=== PATIENT | female | born 1965 | race Caucasian/White ===

== ENCOUNTER 2019-03-10 15:40 | Outpatient (CLI) | payer OTHER | END 2019-03-10 15:43 | disposition home or self-care (01) | LOC: LAB 15:40 | DX: Z11.3 Encounter for screening for infections with a predominantly sexual mode of transmission (principal) ==

== ENCOUNTER 2019-07-13 12:10 | Outpatient (CLI) | payer OTHER | END 2019-07-13 12:16 | disposition home or self-care (01) | LOC: LAB 12:10 | DX: E78.49 Other hyperlipidemia (principal); Z00.00 Encounter for general adult medical examination without abnormal findings; R42 Dizziness and giddiness; E55.9 Vitamin D deficiency, unspecified ==

== ENCOUNTER 2019-07-17 09:41 | Outpatient (CLI) | payer OTHER | END 2019-07-17 09:43 | disposition home or self-care (01) | LOC: MAMO-SONO 09:41 | DX: N64.4 Mastodynia (principal) ==

== ENCOUNTER → 2020-11-07 | Outpatient (CLI) | payer OTHER | END | disposition home or self-care (01) | LOC: PPH VACUNA 14:10 | DX: Z23 Encounter for immunization (principal) ==

== ENCOUNTER 2020-11-26 13:31 | Outpatient (CLI) | payer OTHER | END 2020-11-26 13:32 | disposition home or self-care (01) | LOC: PPH VACUNA 13:31 | DX: Z23 Encounter for immunization (principal) ==

== ENCOUNTER → 2021-08-25 | Outpatient (CLI) | payer OTHER | END | disposition home or self-care (01) | LOC: PPH VACUNA 08:00 | PROVIDERS: ATTEND Emergency Medicine Pediatric Emergency Medicine | DX: Z23 Encounter for immunization (principal) ==

== ENCOUNTER 2021-10-10 08:00 | Outpatient (CLI) | payer OTHER | END 2021-10-10 08:30 | disposition home or self-care (01) | LOC: PPH VACUNA 08:00 | PROVIDERS: ATTEND Emergency Medicine Pediatric Emergency Medicine | DX: Z23 Encounter for immunization (principal) ==

== ENCOUNTER 2022-09-22 16:00 | Outpatient (CLI) | payer OTHER | END 2022-09-22 16:05 | disposition home or self-care (01) | LOC: PPH VACUNA 16:00 | PROVIDERS: ATTEND Emergency Medicine Pediatric Emergency Medicine | DX: Z23 Encounter for immunization (principal) ==

== ENCOUNTER 2023-07-18 10:49 | Emergency (ER) | payer OTHER ==
[~2023-07-18] VITALS: Ht 142.2 cm; Wt 68.9 kg
== END 2023-07-18 14:49 | disposition home or self-care (01) ==
LOC: ER 10:49
DX: U07.1 COVID-19 (principal)

== ENCOUNTER 2023-11-16 02:00 | Outpatient (CLI) | payer OTHER | END 2023-11-16 02:10 | disposition home or self-care (01) | LOC: PPH VACUNA 02:00 | PROVIDERS: ATTEND Emergency Medicine Pediatric Emergency Medicine | DX: Z23 Encounter for immunization (principal) | CPT/HCPCS: 90686; G0008 ==

== ENCOUNTER 2024-07-26 14:44 | Outpatient (CLI) | payer OTHER | END 2024-07-26 14:51 | disposition home or self-care (01) | LOC: LAB 14:44 | PROVIDERS: ATTEND Preventive Medicine Occupational Medicine | DX: B19.10 Unspecified viral hepatitis B without hepatic coma (principal) ==

== ENCOUNTER 2024-12-12 15:00 | Outpatient (CLI) | payer OTHER | END 2024-12-12 15:10 | disposition home or self-care (01) | LOC: PPH VACUNA 15:00 | PROVIDERS: ATTEND Emergency Medicine Pediatric Emergency Medicine | DX: Z23 Encounter for immunization (principal) ==

== ENCOUNTER 2025-03-01 09:03 | Outpatient (CLI) | payer OTHER ==
[2025-03-01 09:36] LABS: HEMATOCRIT 41.5 % (36.0-45.00); HEMOGLOBIN 14.2 g/dL (12.0-15.00); MEAN CELL VOLUME 83.9 fL (80.00-100.00); MEAN CORPUSCULAR HEMOGLOBIN 28.8 pg (27.00-32.0); MEAN CORPUSCULAR HGB CONC 34.3 g/dl (32.0-36.0); PLATELET COUNT 271 K/uL (150-450); RED BLOOD COUNT 4.95 M/uL (4.00-6.00); RED CELL DISTRIBUTION WIDTH 13.8 % (11.5-14.5)
[2025-03-01 09:43] LABS: PH,URINE 5.5 (5.0-8.0); URINE APPEARANCE Clear; URINE BILIRRUBIN Negative (NEGATIVE); URINE BLOOD Trace; URINE COLOR Dark Yellow; URINE GLUCOSE Negative (NEGATIVE); URINE KETONE Negative (NEGATIVE); URINE LEUKOCYTE Negative; URINE NITRATE Negative; URINE PROTEIN Negative (NEGATIVE); URINE UROBILINOGEN 0.2 E.U./dl
[2025-03-01 09:47] LABS: URINE BACTERIA 64.8 uL (0.0-1933); URINE EPITHELIAL CELLS 36.8 uL (0.0-38.8); URINE RBC 13.8 uL (0.0-20.8); URINE WBC 7.1 uL (0.0-23.2)
[2025-03-01 09:50] LABS: URINE CAST 0.58 uL (0.0-1.40)
[2025-03-01 10:26] LABS: ob NEGATIVE (NEGATIVE)
[2025-03-01 10:42] LABS: ALBUMIN 3.9 gm/dL (3.4-5.0); BILIRUBIN TOTAL 0.79 mg/dL (0.3-1.2); CALCIUM 9.4 mg/dL (8.5-10.1); CREATININE SERUM 0.85 mg/dL (0.55-1.02); GFR 68.45; GLOBULINA 4.5 G/DL (2.4-3.5); POTASSIUM 3.91 mEq/L (3.5-5.1); TOTAL PROTEIN 8.4 gm/dL (6.4-8.2); TSH 3.77 uIU/mL (0.358-3.74)
[2025-03-01 10:43] LABS: CHOL HDL RATIO 5.8 (0-5.0)
== END 2025-03-01 09:14 | disposition home or self-care (01) ==
LOC: LAB 09:03
PROVIDERS: ATTEND Emergency Medicine Pediatric Emergency Medicine
DX: D64.9 Anemia, unspecified (principal); E11.9 Type 2 diabetes mellitus without complications; E78.2 Mixed hyperlipidemia; N39.0 Urinary tract infection, site not specified; E11.65 Type 2 diabetes mellitus with hyperglycemia; E03.8 Other specified hypothyroidism; N18.31 Chronic kidney disease, stage 3a; Z12.11 Encounter for screening for malignant neoplasm of colon; E55.9 Vitamin D deficiency, unspecified

== ENCOUNTER → 2025-03-02 13:01 | Outpatient (CLI) | payer OTHER | END | disposition home or self-care (01) | LOC: LAB 13:01 | PROVIDERS: ATTEND Internal Medicine | DX: E03.9 Hypothyroidism, unspecified (principal) ==

== ENCOUNTER 2025-03-07 08:32 | Outpatient (CLI) | payer OTHER | END 2025-03-07 08:35 | disposition home or self-care (01) | LOC: SONOGRAMA 08:32 | PROVIDERS: ATTEND Internal Medicine | DX: K80.80 Other cholelithiasis without obstruction (principal) ==

== ENCOUNTER 2025-05-21 12:31 | Outpatient (CLI) | payer OTHER | END 2025-05-21 12:35 | disposition home or self-care (01) | LOC: MAMO-SONO 12:31 | PROVIDERS: ATTEND Internal Medicine | DX: N64.4 Mastodynia (principal); R92.8 Other abnormal and inconclusive findings on diagnostic imaging of breast ==

== ENCOUNTER 2025-06-27 07:10 | Outpatient (CLI) | payer OTHER ==
[2025-06-27 07:38] LABS: BASO % 0.7 % (0.1-1.2); EOS # 0.19 (0.04-0.54); EOS % 2.0 % (0.7-7.0); LYMPH # 3.62 (1.18-3.74); LYMPH % 38.6 % (19.3-53.1); MEAN PLATELET VOLUME 10.50 fl (9.4-12.4); MONO # 0.90 (0.24-0.82); MONO % 9.6 % (4.7-12.5); NEUT # 4.59 (1.56-6.13); NEUT % 49.0 % (34.0-71.1); RED CELL DISTRIBUTION WIDTH 12.9 % (11.6-14.4)
[2025-06-27 07:58] LABS: URINE APPEARANCE Clear; URINE BILIRRUBIN Negative (NEGATIVE); URINE BLOOD Negative; URINE COLOR Yellow; URINE GLUCOSE Negative (NEGATIVE); URINE KETONE Trace (NEGATIVE); URINE LEUKOCYTE Trace; URINE NITRATE Negative; URINE PROTEIN Negative (NEGATIVE); URINE UROBILINOGEN 1.0 E.U./dl
[2025-06-27 08:03] LABS: URINE BACTERIA 69.5 uL (0.0-1933); URINE EPITHELIAL CELLS 45.6 uL (0.0-38.8); URINE RBC 5.5 uL (0.0-20.8); URINE WBC 12.7 uL (0.0-23.2)
[2025-06-27 08:04] LABS: URINE CAST 0.29 uL (0.0-1.40)
[2025-06-27 08:25] LABS: ALT/SGPT 28.0 U/L (12-78); AST/SGOT 20.0 U/L (15-37); BILIRUBIN TOTAL 0.37 mg/dL (0.3-1.2); BUN CREA RATIO 26.0 (7.0-25.0); CREATININE SERUM 0.68 mg/dL (0.55-1.02); GFR 88.56; GLOBULINA 3.7 G/DL (2.4-3.5); GLUCOSE FASTING 101.0 mg/dL (65-100); HDL 49.0 mg/dl (40-60); OSMOLALITY SERUM 281.0 MOSM/KG (275-295); VLDL 121.0 (0-39)
[2025-06-27 08:36] LABS: CHOL HDL RATIO 7.5 (0-5.0); LDL 197.0 mg/dl (0-130)
== END 2025-06-27 07:16 | disposition home or self-care (01) ==
LOC: LAB 07:10
PROVIDERS: ATTEND Internal Medicine
DX: D64.9 Anemia, unspecified (principal); E11.9 Type 2 diabetes mellitus without complications; E78.2 Mixed hyperlipidemia; N39.0 Urinary tract infection, site not specified

== ENCOUNTER 2025-09-12 10:20 | Outpatient (CLI) | payer OTHER ==
[2025-09-12 11:10] LABS: URINE APPEARANCE Clear; URINE BILIRRUBIN Negative (NEGATIVE); URINE BLOOD Negative; URINE COLOR Yellow; URINE GLUCOSE Negative (NEGATIVE); URINE KETONE Negative (NEGATIVE); URINE LEUKOCYTE Trace; URINE NITRATE Negative; URINE PROTEIN Negative (NEGATIVE); URINE UROBILINOGEN 0.2 E.U./dl
[2025-09-12 11:12] LABS: URINE BACTERIA 9.5 uL (0.0-1933); URINE EPITHELIAL CELLS 17.2 uL (0.0-38.8); URINE RBC 7.3 uL (0.0-20.8); URINE WBC 7.6 uL (0.0-23.2)
[2025-09-12 11:15] LABS: BASO % 0.6 % (0.1-1.2); EOS # 0.11 (0.04-0.54); EOS % 1.3 % (0.7-7.0); LYMPH # 1.68 (1.18-3.74); LYMPH % 19.9 % (19.3-53.1); MEAN PLATELET VOLUME 10.10 fl (9.4-12.4); MONO # 0.64 (0.24-0.82); MONO % 7.6 % (4.7-12.5); NEUT # 5.94 (1.56-6.13); NEUT % 70.4 % (34.0-71.1); RED CELL DISTRIBUTION WIDTH 12.9 % (11.6-14.4)
[2025-09-12 11:34] LABS: URINE CAST 0.00 uL (0.0-1.40)
[2025-09-12 12:02] LABS: ALT/SGPT 40.0 U/L (12-78); AST/SGOT 27.0 U/L (15-37); BILIRUBIN TOTAL 0.73 mg/dL (0.3-1.2); BUN CREA RATIO 17.0 (7.0-25.0); CHOL HDL RATIO 3.5 (0-5.0); CREATININE SERUM 0.76 mg/dL (0.55-1.02); GFR 77.63; GLOBULINA 4.1 G/DL (2.4-3.5); GLUCOSE FASTING 107.0 mg/dL (65-100); HDL 55.0 mg/dl (40-60); LDL 91.0 mg/dl (0-130); OSMOLALITY SERUM 282.0 MOSM/KG (275-295); TSH 4.2 uIU/mL (0.358-3.74); VLDL 44.0 (0-39)
== END 2025-09-12 10:30 | disposition home or self-care (01) ==
LOC: LAB 10:20
PROVIDERS: ATTEND Internal Medicine
DX: D64.9 Anemia, unspecified (principal); E11.9 Type 2 diabetes mellitus without complications; E78.2 Mixed hyperlipidemia; N39.0 Urinary tract infection, site not specified; E03.8 Other specified hypothyroidism